=== PATIENT | female | born 1980 | race American Indian/Alaskan Native ===

== ENCOUNTER 2016-08-09 13:04 | Emergency (ER) | payer OTHER ==
[2016-08-09 14:11] VITALS: BP 152/105
[2016-08-09 15:00] LABS: Basophils % (Auto) 1.6 % (0.0-1.8); Eosinophils % (Auto) 1.7 % (0.0-4.3); Hemoglobin 8.2 gm/dl (10.1-14.3)
[2016-08-09 15:06] LABS: Hematocrit 27.6 % (30.3-42.9); Mean Corpuscular Hemoglobin 19 pg (28-32); Mean Corpuscular Volume 63 fl (79-97); Red Blood Count 4.37 M/mm3 (3.65-5.03)
[2016-08-09 15:07] LABS: Mean Corpuscular HGB Conc 30 % (30-34); Platelet Count 463 K/mm3 (140-440); Red Cell Distribution Width 20.9 % (13.2-15.2)
[2016-08-09 15:11] LABS: Anion Gap 17 mmol/L; BUN/Creatinine Ratio 13.33; Blood Urea Nitrogen 8 mg/dL (7-17); Calcium 9.1 mg/dL (8.4-10.2); Carbon Dioxide 24 mmol/L (22-30); Chloride 104.6 mmol/L (98-107); Glucose 98 mg/dL (65-100); Potassium 3.9 mmol/L (3.6-5.0); Sodium 142 mmol/L (137-145)
[2016-08-09 15:55] LABS: Bilirubin,Urine NEG (Negative); Blood,Urine MOD (Negative); Ketones,Urine NEG (Negative); Leukocyte Esterase,Urine NEG (Negative); Mucus,Urine FEW /HPF; Nitrite,Urine NEG (Negative); Protein,Urine <15 mg/dL mg/dL (Negative); Urobilinogen,Urine < 2.0 mg/dL (<2.0)
--- NOTE | 2016-08-10 17:59 | ED Elopement Review ---
ED Pt Elopement review - Results review Lab results: Laboratory Tests 08/09/16 08/09/16 08/09/16 14:34 14:34 14:34 WBC 12.0 H RBC 4.37 Hgb 8.2 L Hct 27.6 L MCV 63 L MCH 19 L MCHC 30 RDW 20.9 H Plt Count 463 H Lymph % (Auto) 23.1 [place] % (Auto) 6.0 Eos % (Auto) 1.7 Baso % (Auto) 1.6 Lymph # 2.8 [place] # 0.7 Eos # 0.2 Baso # 0.2 H Seg Neutrophils % 67.6 Seg Neutrophils # 8.1 H Sodium 142 Potassium 3.9 Chloride 104.6 Carbon Dioxide 24 Anion Gap 17 BUN 8 Creatinine 0.6 L Estimated GFR > 60 BUN/Creatinine Ratio 13.33 Glucose 98 Calcium 9.1 Urine Color Yellow Urine Turbidity Clear Urine pH 6.0 Ur Specific [place] 1.023 Urine Protein <15 mg/dl Urine Glucose (UA) Neg Urine Ketones Neg Urine Blood Mod Urine Nitrite Neg Urine Bilirubin Neg Urine Urobilinogen < 2.0 Ur Leukocyte Esterase Neg Urine WBC (Auto) 2.0 Urine RBC (Auto) 4.0 U Epithel Cells (Auto) 1.0 Urine Mucus Few Urine HCG, Qual Negative - Call Back decision Pt Call Back Decision: No action required
== END 2016-08-09 19:05 | disposition left against medical advice (07) ==
LOC: ED 13:04
DX: M54.5 Low back pain (principal); R42 Dizziness and giddiness; R51 Headache; Z53.21 Procedure and treatment not carried out due to patient leaving prior to being seen by health care provider
CPT/HCPCS: 36415; 80048; 81001; 81025; 85025; 93005; 93010

== ENCOUNTER 2018-12-29 14:25 | Emergency (ER) | payer OTHER ==
[2018-12-29 14:37] VITALS: BP 166/102
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
== END 2018-12-29 16:12 | disposition home or self-care (01) ==
LOC: ED 14:25
DX: M54.2 Cervicalgia (principal); M54.5 Low back pain; M25.511 Pain in right shoulder; Z79.1 Long term (current) use of non-steroidal anti-inflammatories (NSAID); Z79.899 Other long term (current) drug therapy; Z86.2 Personal history of diseases of the blood and blood-forming organs and certain disorders involving the immune mechanism; V89.2XXA Person injured in unspecified motor-vehicle accident, traffic, initial encounter; Y93.89 Activity, other specified; Y92.488 Other paved roadways as the place of occurrence of the external cause; Y99.8 Other external cause status
CPT/HCPCS: 72040; 72100; 99283